=== PATIENT | female | born 1955 | race Hispanic/Latino ===

== ENCOUNTER → 2019-04-09 | Outpatient (CLI) | payer OTHER, MEDICARE ==
[~2019-04-09] VITALS: Ht 152.4 cm; Wt 108.9 kg
[~2019-04-09] MED LIST: REGADENOSON 0.4 MG/5 ML PF SYG IVP SCH
== END | disposition home or self-care (01) ==
LOC: SHCH 08:49
PROVIDERS: ATTEND Internal Medicine Cardiovascular Disease
DX: R07.9 Chest pain, unspecified (principal); I25.10 Atherosclerotic heart disease of native coronary artery without angina pectoris
CPT/HCPCS: 78452; 93017; 96374; A9500 ×2; J2785

== ENCOUNTER → 2019-06-15 | Outpatient (CLI) | payer OTHER, MEDICARE | END | disposition home or self-care (01) | LOC: RAH 07:45 | PROVIDERS: ATTEND Internal Medicine Gastroenterology | DX: K76.0 Fatty (change of) liver, not elsewhere classified (principal); K80.20 Calculus of gallbladder without cholecystitis without obstruction | CPT/HCPCS: 76700 ==

== ENCOUNTER → 2019-10-15 | Outpatient (CLI) | payer OTHER, MEDICARE | END | disposition home or self-care (01) | LOC: RAH 12:54 | PROVIDERS: ATTEND Family Medicine | DX: Z12.31 Encounter for screening mammogram for malignant neoplasm of breast (principal); N63.20 Unspecified lump in the left breast, unspecified quadrant; N63.10 Unspecified lump in the right breast, unspecified quadrant | CPT/HCPCS: 77067 ==

== ENCOUNTER → 2020-10-12 | Outpatient (CLI) | payer OTHER, MEDICARE ==
[~2020-10-12] MED LIST changes: +IOHEXOL 350 MG/ML 100ML INFUS..BTL IV ONE; -REGADENOSON 0.4 MG/5 ML PF SYG IVP SCH
== END | disposition home or self-care (01) ==
LOC: RAH 09:41
PROVIDERS: ATTEND Internal Medicine Gastroenterology
DX: K59.00 Constipation, unspecified (principal)
CPT/HCPCS: 74178; Q9967

== ENCOUNTER → 2021-01-09 | Outpatient (CLI) | payer OTHER, MEDICARE | END | disposition home or self-care (01) | LOC: RAH 11:06 | PROVIDERS: ATTEND Urology | DX: R31.0 Gross hematuria (principal); N28.89 Other specified disorders of kidney and ureter | CPT/HCPCS: 76770 ==

== ENCOUNTER → 2021-07-31 | Outpatient (CLI) | payer OTHER, MEDICARE | END | disposition home or self-care (01) | LOC: RAH 09:32 | PROVIDERS: ATTEND Obstetrics & Gynecology | DX: Z12.31 Encounter for screening mammogram for malignant neoplasm of breast (principal); N95.0 Postmenopausal bleeding; Z90.710 Acquired absence of both cervix and uterus | CPT/HCPCS: 76856; 77067 ==

== ENCOUNTER → 2021-08-14 | Outpatient (CLI) | payer OTHER, MEDICARE | END | disposition home or self-care (01) | LOC: SHCH 13:45 | PROVIDERS: ATTEND Internal Medicine Cardiovascular Disease | DX: I87.2 Venous insufficiency (chronic) (peripheral) (principal) | CPT/HCPCS: 93970 ==

== ENCOUNTER → 2022-11-27 | Outpatient (CLI) | payer OTHER, MEDICARE | END | disposition home or self-care (01) | LOC: RAH 11:28 | PROVIDERS: ATTEND Family Medicine | DX: N60.02 Solitary cyst of left breast (principal); N64.4 Mastodynia | CPT/HCPCS: 76641 ==

== ENCOUNTER → 2023-06-20 | Outpatient (CLI) | payer OTHER, MEDICARE ==
[~2023-06-20] MED LIST changes: -IOHEXOL 350 MG/ML 100ML INFUS..BTL IV ONE; +REGADENOSON 0.4 MG/5 ML PF SYG IVP ONE
== END | disposition home or self-care (01) ==
LOC: SHCH 08:32
PROVIDERS: ATTEND Internal Medicine Cardiovascular Disease
DX: I20.0 Unstable angina (principal)
CPT/HCPCS: 78452; 93017; J2785; A9500 ×2; 96374

== ENCOUNTER → 2023-06-23 | Outpatient (CLI) | payer OTHER, MEDICARE | END | disposition home or self-care (01) | LOC: SHCH 10:34 | PROVIDERS: ATTEND Internal Medicine Cardiovascular Disease | DX: I51.7 Cardiomegaly (principal); I20.0 Unstable angina | CPT/HCPCS: 93306 ==

== ENCOUNTER → 2023-08-06 | Outpatient (CLI) | payer OTHER, MEDICARE | END | disposition home or self-care (01) | LOC: RAH 09:34 | PROVIDERS: ATTEND Family Medicine | DX: Z12.31 Encounter for screening mammogram for malignant neoplasm of breast (principal) | CPT/HCPCS: 77067 ==

== ENCOUNTER → 2023-08-27 | Outpatient (CLI) | payer OTHER, MEDICARE | END | disposition home or self-care (01) | LOC: RAH 14:12 | PROVIDERS: ATTEND Family Medicine | DX: G44.229 Chronic tension-type headache, not intractable (principal) | CPT/HCPCS: 70450 ==

== ENCOUNTER → 2024-10-14 | Outpatient (CLI) | payer OTHER, MEDICARE ==
--- NOTE | 2024-10-14 10:29 | HMCIMG ---
Exam Type: MAMMO SCREENING BILATERAL Clinical Information: ROUTINE SCREENING Comparison: August 06, 2023 Technique: Mammogram with CAD was performed with CC and MLO projections. CAD shows no worrisome regions. FINDINGS: There are scattered areas of fibroglandular density. No dominant mass or suspicious microcalcification identified. There is no nipple retraction or skin thickening. Benign-appearing calcifications are seen. CAD shows no worrisome regions. IMPRESSION: 1. No mammographic signs of malignancy. 2. Routine follow-up recommended. CATEGORY 2: BENIGN FINDINGS Note: A negative x-ray should not delay biopsy if a dominant or clinically suspicious mass is present, since 8-10% of cancers are not identified by mammography. Dense breasts may obscure an underlying neoplasm.
== END | disposition home or self-care (01) ==
LOC: RAH 07-13 08:54
PROVIDERS: ATTEND Family Medicine
DX: Z12.31 Encounter for screening mammogram for malignant neoplasm of breast (principal); R92.323 Mammographic fibroglandular density, bilateral breasts
CPT/HCPCS: 77067

== ENCOUNTER → 2024-11-04 | Outpatient (CLI) | payer OTHER, MEDICARE ==
--- NOTE | 2024-11-10 08:35 | HMCSR ---
APPROVED REPORT Bilateral Lower Extremity Venous Study for DVT., Venous Competence. Indications i87.1, i87.2 Vein Imaging CFV (R): Normal flow, augmentation and compression. No evidence of DVT. 8.2mm 1211ms of reflux. SFJ (R): Normal flow, augmentation and compression. No evidence of DVT. FEM (R): Normal flow, augmentation and compression. No evidence of DVT. POP (R): Normal flow, augmentation and compression. No evidence of DVT. DFV (R): Normal flow, augmentation and compression. No evidence of DVT. PTV (R): Normal flow, augmentation and compression. No evidence of DVT. Peroneals (R): Normal flow, augmentation and compression. No evidence of DVT. CFV (L): Normal flow, augmentation and compression. No evidence of DVT. 11.1mm 1128ms of reflux. SFJ (L): Normal flow, augmentation and compression. No evidence of DVT. FEM (L): Normal flow, augmentation and compression. No evidence of DVT. POP (L): Normal flow, augmentation and compression. No evidence of DVT. DFV (L): Normal flow, augmentation and compression. No evidence of DVT. PTV (L): Normal flow, augmentation and compression. No evidence of DVT. Peroneals (L): Normal flow, augmentation and compression. No evidence of DVT. Technologist Impression Deep veins of the bilateral lower extremities appear patent and compressible without thrombus. Deep vein reflux seen in RCFV Superficial venous insufficiency in RGSV RGSV junction3.7mm 2211ms thigh 6.0mm 0.0ms knee 6.2mm 583ms calf 3.5mm 1106ms RSSV prox 3.5mm 2567ms mid 3.5mm 1506ms LGSV junction 7.6mm 1228ms thigh 5.5mm 2678ms knee 4.3mm 1667ms calf 3.3mm 1711ms LSSV prox 4.4mm 2489ms mid 3.5mm 606ms Conclusion Deep vein reflux seen in RCFV Superficial venous insufficiency in RGSV Consider formal venography with intravascular sound if iliac vein compression is suspected Conclusion Deep vein reflux seen in RCFV Superficial venous insufficiency in RGSV Consider formal venography with intravascular sound if iliac vein compression is suspected
== END | disposition home or self-care (01) ==
LOC: SHCH 08:21
PROVIDERS: ATTEND Internal Medicine Cardiovascular Disease
DX: I87.1 Compression of vein (principal); I87.2 Venous insufficiency (chronic) (peripheral)
CPT/HCPCS: 93970

== ENCOUNTER → 2024-11-15 | Outpatient (CLI) | payer OTHER, MEDICARE ==
--- NOTE | 2024-11-15 16:55 | HMCIMG ---
Left BREAST ULTRASOUND: HISTORY: Pain COMPARISON: Mammogram October 14, 2024 and ultrasound November 27, 2022 FINDINGS: The breast and axilla were evaluated. No cysts or solid masses are identified. Benign-appearing axillary lymph nodes are noted. Impression: Benign left breast ultrasound. Routine screening mammogram in 1 year recommended. BI-RADS: CATEGORY 2: BENIGN FINDINGS Note: A negative x-ray should not delay biopsy if a dominant or clinically suspicious mass is present, since 8-10% of cancers are not identified by mammography. Dense breasts particularly, may obscure an underlying neoplasm. Thank you for allowing me to participate in this patient's care. If I can be of further assistance, please do not hesitate to call. A negative report should not delay biopsy if a clinically suspicious mass is present. Some cancers are not identified by imaging studies.
== END | disposition home or self-care (01) ==
LOC: RAH 13:15
PROVIDERS: ATTEND Family Medicine
DX: N64.4 Mastodynia (principal); R59.0 Localized enlarged lymph nodes
CPT/HCPCS: 76641

== ENCOUNTER 2025-07-05 06:17 | Day surgery (SDC) | payer OTHER, MEDICAID ==
[2025-07-01 09:47] LABS: IMMATURE GRANULOCYTE ABSOLUTE 0.01 K/uL (0-1); NUCLEATED RED BLOOD CELLS 0.0 % (0.0-0.19); PLATELET COUNT (AUTO) 157 K/uL (130-400); RED BLOOD CELL COUNT(AUTO) 3.71 MIL/uL (4.00-5.50); RED CELL DISTRIBUTION WIDTH 13.2 % (11.0-15.5); WHITE BLOOD COUNT (AUTO) 5.0 K/uL (4.8-10.8)
--- NOTE | 2025-07-01 09:49 | EKG ---
[facility] Test Date: 2025-07-01 Test Time: 09:29:22 Pat Name: PAUL RUANODepartment: [facility] Room: Gender: F Facilities Flight Check Pilot: [id number] : 1955 Requested By: GWEN MULLER Order Number: [id number] Reading MD: Lilliana Garcia Measurements Intervals Pollock Rate: 50 P: 48 NC: 204 QRS: -12 QRSD: 113 T: 7 QT: 444 QTc: 405 Interpretive Statements Sinus rhythm No previous ECG available for comparison Electronically Signed On 07-01-2025 11:40:18 CDT by Lilliana Garcia Please click the below link to view image of tracing.
[2025-07-01 09:57] LABS: CREATININE 0.8 mg/dL (0.5-1.0); GLOMERULAR FILTR. RATE CALC 80.0 mL/min (>90); GLUCOSE,RANDOM 95.0 mg/dL (70-105); SODIUM SERUM 135.0 mmol/L (136-145); UREA NITROGEN, BLOOD 24.0 mg/dL (7-18)
[2025-07-01 10:00] VITALS: BP 130/51; PULSE 53; RESP 12; TEMP 97.3
[2025-07-01 10:11] LABS: INR <= 0.93 (0.85-1.15)
[~2025-07-05] VITALS: Ht 149.9 cm; Wt 89.7 kg
[2025-07-05] VITALS (17 sets, daily range): BP systolic 96–117; BP diastolic 41–54; PULSE 56–63; RESP 10–16; TEMP 97–97.7
[~2025-07-05 06:17] MED LIST changes: +AMLODIPINE PO; +ASPI-1443 PO; +GABAPENTIN PO; +LOSARTAN PO; -REGADENOSON 0.4 MG/5 ML PF SYG IVP ONE
[2025-07-05] MEDS ORDERED: INDOCYANINE GREEN 25 MG VIAL IJ ONE (07:32)
[2025-07-05] MEDS ORDERED: MIRA50TA PO (07:39)
[2025-07-05] MEDS ORDERED: FLUT1BLS15 IH (07:39)
[2025-07-05] MEDS ORDERED: AUD IH (07:40)
[2025-07-05] MEDS ORDERED: CETI10TA57 PO (07:42)
[2025-07-05] MEDS ORDERED: [UNRECOGNIZED DRUG - CODE] PO (07:42)
[2025-07-05] MEDS ORDERED: LINA290C PO (07:42)
[2025-07-05] MEDS ORDERED: MILK175C5 PO (07:45)
[2025-07-05] MEDS ORDERED: MAGN400C PO (07:45)
[2025-07-05] MEDS ORDERED: ASCO500T20 PO (07:45)
[2025-07-05] MEDS ORDERED: CHOL500051 PO (07:45)
[2025-07-05] MEDS ORDERED: OMEP40CA21 PO (07:45)
[2025-07-05] MEDS ORDERED: MIDAZOLAM HCL 1 MG/ML 2ML VIAL ONE (09:25)
--- NOTE | 2025-07-05 10:14 | OP ---
Operative Note: DATE OF PROCEDURE: 07/05/25 SURGEON: GWEN MULLER MD PATTERNMAKER GRADER: [Please review operative record] ANESTHESIA: [General and Local] ANESTHESIOLOGIST/PICKER TENDER: [Please review operative record] PREOPERATIVE DIAGNOSIS: [Symptomatic cholelithiasis] POSTOPERATIVE DIAGNOSIS: [Same] SYNOPSIS: [Enlarged, mildly inflamed gallbladder containing large choleliths. Ic green appropriately identifying cystic duct, hepatic duct, common bile duct. The intraductal filling defects noted, no ductal dilation appreciated.] PROCEDURE: [1. Robotic assisted laparoscopic cholecystectomy. 2. Ic green chola ngiography] ESTIMATED BLOOD LOSS: [10 cc] INDICATIONS: [Patient is a 70-year-old female with chronic right upper quadrant postprandial pain. Found to have nine scissors and imaging. No signs of cholecystitis. Patient failed conservative management with dietary changes and analgesics. Recommendation was given for cholecystectomy. Risks, benefits, alternatives were discussed with the patient. All questions were answered. Patient agreed to proceed.] DESCRIPTION OF PROCEDURE: [After appropriate consent was obtained, the patient was transferred to the operating room and placed in supine position on the operating table. SCDs were placed, preop antibiotics were given. Patient portion of general anesthesia, endotracheal intubation. The patient was then prepped and draped in the usual sterile fashion. Time-out was performed. Through a left subcostal incision, Veress needle was inserted into the peritoneal cavity. Insufflation was allowed to 12 mmHg. Through a supraumbilical incision,8 mm trocar and laparoscope were inserted into the peritoneal cavity using Optiview. Rest of my trocars were all placed under direct visualization. Patient was positioned on a reverse Trendelenburg at 20. At this time the Mckenna robot was docked. Upon evaluation of the peritoneal cavity, liver appeared enlarged with mild signs of fatty infiltration, liver edges were blunt, no overt signs of cirrh osis. The gallbladder was enlarged, chronically inflamed with a few omental adhesions. These adhesions were taken down with hook electrocautery. The fundus was retracted cephalad, the infundibulum was grasped and retracted laterally and medially thus exposing Calot's triangle. Dissection happened via combination of hook and blunt dissection. The cystic artery was small, it was isolated, cauterized and sharply divided. Cystic duct was identified. This was confirmed with IC green cholangiography which also showed no filling defects for ductal dilation on the cystic duct, hepatic duct or common bile duct. The cystic duct was then clipped3 times, with 2-0 this clips staying behind the sharply dividing it. The gallbladder was dissected off the gallbladder fossa using bipolar energy. Once removed from the fossa, the gallbladder was placed in a Endo-Catch bag. At this time the Mckenna robot was undocked. The gallbladder was removed through an8 mm port, of note the skin incision had to be enlarged as patient had a large choleliths within the gallbladder. The fascia of this port site was closed with 0 Vicryl suture through a suture Pa sser. Final inspection revealed adequate hemostasis, with no concerns of leakage. At this time all instruments were removed. Counts were correct at the end of the case. Abdomen was allowed to desufflate. Skin incisions were closed with 4-0 Monocryl. Dermabond was placed over the incisions. Patient tolerated the procedure well. Patient was transferred to recovery in a good c ondition. ] GWEN MULLER MD Jul 05, 2025 10:14
--- NOTE | 2025-07-05 10:17 | DS ---
Discharge Summary Hospital Course Patient is a 70-year-old female who was admitted from the outpatient setting for elective robotic assisted laparoscopic cholecystectomy due to symptomatic cholelithiasis on imaging on 07/05/2025. Patient with no complications at the time. Currently in recovery. No major concerns at this time. Remains hemodynamically stable, afebrile. Normal sinus rhythm. Aerating well on 2 L nasal cannula. Abdomen is benign, incisions clean dry and intact. No rebound or guarding. Appropriately tender to palpation. Return precautions given including fevers of 101.5 or higher, worsening abdominal pain, intractable nausea or vomiting. Patient to avoid lifting more than 20 lb for a month. Advance diet as tolerated. Okay to shower 24 hours after the procedure, no need to cover the incisions. Patient will be observed in recovery and discharged home per anesthesia protocol. Follow up already in place on 07/12/2025 at 1:30 p.m. at the [facility]. Postop medications already submitted to the patient's pharmacy. GWEN MULLER MD Jul 05, 2025 10:17
--- NOTE | 2025-07-05 10:54 | NUR ---
POST-RECOVERY SURGICAL 4 INCISIONS TO LOWER ANTERIOR ABDOMEN. DERMABOND TO 4 INCISIONS. DERMABOND DRY AND INTACT. NO ACTIVE BLEEDING OR DRAINAGE. NO REDNESS OR SWELLING NOTED TO INCISIONS. SHOWED SON AND THE INCISIONS PRIOR TO LEAVING. PATIENT ABLE TO WIGGLE TOES.
== END 2025-07-05 11:40 | disposition home or self-care (01) ==
LOC: DAH 06:17
PROVIDERS: ATTEND Surgery
DX: K80.12 Calculus of gallbladder with acute and chronic cholecystitis without obstruction (principal); K21.00 Gastro-esophageal reflux disease with esophagitis, without bleeding; I10 Essential (primary) hypertension; K75.81 Nonalcoholic steatohepatitis (NASH); J45.909 Unspecified asthma, uncomplicated; M19.90 Unspecified osteoarthritis, unspecified site; E66.01 Morbid (severe) obesity due to excess calories; Z68.41 Body mass index [BMI] 40.0-44.9, adult; Z90.710 Acquired absence of both cervix and uterus; Z88.1 Allergy status to other antibiotic agents; Z79.899 Other long term (current) drug therapy; Z98.890 Other specified postprocedural states
CPT/HCPCS: 80048; 85025; 85610; 85730; 86850 ×2; 86900 ×2; 86901 ×2; 36415 ×2; 93005; 47563; 88304; A6260; A4663; J7030; A4215 ×2; J3010; J0665 ×2; J3490 ×2; J2250; J2704; J2405 ×2; J2270; J0690 ×2; A4930; A4213; A4222; A4221; A4216; A4223 ×2; A4600